=== PATIENT | female | born 1965 | race Caucasian/White ===

== ENCOUNTER 2019-10-16 07:00 | Day surgery (SDC) | payer OTHER ==
[~2019-10-16 07:00] MED LIST: CRESTOR20 MG PO; DERMACINRX5000 UNIT PO; GLIMEPIRIDE1 MG; JANUVIA100 MG PO; LIBRAX PO; MICARDIS40 MG PO
== END 2019-10-16 13:00 | disposition home or self-care (01) ==
LOC: CIR.AMB 07:00
PROVIDERS: ATTEND Surgery
DX: D24.1 Benign neoplasm of right breast (principal)